=== PATIENT | female | born 1950 | race Caucasian/White ===

== ENCOUNTER → 2023-11-24 | Outpatient (CLI) | payer MEDICARE ==
--- NOTE | 2023-12-01 12:43 | MR ---
EXAMINATION TYPE: MR knee LT wo con DATE OF EXAM: 11/24/2023 COMPARISON: NONE HISTORY: Left knee pain x2 weeks after injury TECHNIQUE: Multiplanar, multisequence images of the knee is performed without IV contrast. FINDINGS: MEDIAL MENISCUS: Horizontal and oblique signal posterior horn extends near the inferior articular edmund face. LATERAL MENISCUS: Anterior and posterior horns are intact without tear. CRUCIATE LIGAMENTS: The anterior and posterior cruciate ligaments are intact and unremarkable. COLLATERAL LIGAMENTS: The medial collateral ligament and lateral collateral ligament complex are inta ct and unremarkable. EXTENSOR MECHANISM: Visualized quadriceps and patellar tendons are intact. EFFUSION: Moderate to large size suprapatellar joint effusion. POPLITEAL CYST: No popliteal/escalona cyst. TRICOMPARTMENT SPACES: Moderate to severe narrowing with mild/moderate spurring patellofemoral compar tment. Mild/moderate narrowing and spurring medial and lateral tibiofemoral compartments. CARTILAGE: Significant chondromalacia patella with full-thickness cartilaginous loss along posterior patellar pole seen particularly medially. Some cartilaginous loss medially. BONE MARROW SIGNAL: Serpiginous diminished T1 signal involving the lateral tibial plateau seen best s agittal image 11 has significant surrounding increased T2 signal throughout the entire lateral proxim al tibia extending into the metadiaphysis. No bony separation. OTHER: No additional significant abnormality is appreciated. IMPRESSION: 1. Nondisplaced intra-articular fracture through the lateral tibial plateau with significant surround ing osseous contusion injury. 2. Moderate to large-sized suprapatellar joint effusion. 3. 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 4. At least intrasubstance tear posterior horn medial meniscus.
== END | disposition home or self-care (01) ==
LOC: RADMRIMAIN 18:56
PROVIDERS: ATTEND Orthopaedic Surgery
DX: S82.125A Nondisplaced fracture of lateral condyle of left tibia, initial encounter for closed fracture (principal); S80.02XA Contusion of left knee, initial encounter; M17.12 Unilateral primary osteoarthritis, left knee; S83.242A Other tear of medial meniscus, current injury, left knee, initial encounter; X58.XXXA Exposure to other specified factors, initial encounter